=== PATIENT | male | born 1955 | race Caucasian/White ===

== ENCOUNTER 2017-05-06 05:13 | Observation (INO) | payer BC ==
[~2017-05-06] VITALS: Ht 170.2 cm; Wt 85.3 kg
--- NOTE | ~2017-05-06 | TEE ---
Transesophageal Echocardiogram [id number] [place]. [address] NAME: CHITO OLIVAREZ : 51 STATUS : REG REF PAT#: [id number] AGE: 61 ADM/REG DATE : 05/06/17 MR#: [id number] REPORT SERV DATE: 05/06/17 DICTATED BY: DATE: REPORT STATUS : Draft TRANSCRIBED BY: MODL DATE: 05/06/17 DESCRIPTION OF PROCEDURE: After informed consent and all questions were answered, the patient was sedated by our Anesthesia colleagues. The probe was inserted and the exam was performed without any complications. The probe was withdrawn without any difficulty whatsoever and there was no blood on the probe. The patient tolerated the procedure with only a mild amount of coughing, which was managed by our Anesthesia colleagues. FINDINGS: 1. Left ventricle. The left ventricle is of normal size and grossly normal LV function in the setting of atrial flutter with rapid ventricular response. 2. Left atrium. The left atrium is normal without evidence of thrombus. 3. Left atrial appendage. The left atrial appendage was meticulously inspected. It had a windsock appearance and did not contain any evidence of thrombus when inspected in multiple planes. 4. Right ventricle. The right ventricle was grossly normal. 5. Right atrium. Right atrium was grossly normal. 6. Interatrial septum. The interatrial septum was inspected. A tiny PFO was appreciated inferiorly. 7. Aortic valve. There was trivial aortic regurgitation. 8. Mitral valve. There was mild mitral valve regurgitation. 9. Pulmonic valve. There was mild pulmonic regurgitation. 10.Tricuspid valve. There was mild tricuspid regurgitation as well. 11.Doppler. Doppler flow velocities in the left atrial appendage were approximately 15-20 m/sec. CONCLUSION: 1. NO EVIDENCE OF LA, ELYSE, OR RA APPENDAGE THROMBUS. 2. GROSSLY NORMAL LEFT VENTRICULAR AND RIGHT VENTRICULAR FUNCTION. 3. TINY PFO APPRECIATED. 4. MILD IN, TR, AND MR. COMPLICATIONS: None. EPL/MODL Dorian Fry IV, MD / [id number] CC: Mali Hurst M.D.
[~2017-05-06 05:13] MED LIST: ASA5GR PO; BENICAR40 PO; BETAPACE80 PO; BYSTOLIC5 MG PO; CALCIUM 600 WI1 EAC2 PO; CIALIS2.5 MG PO; COCONUT OIL; COCONUT OIL XX; CRESTOR5 MG PO; CVS DAILY GUM200 MCG PO; CYANO1000T PO; FISH-EPA1000 MG PO; LIPITOR20 PO; LIPITOR40 PO; LOP25 PO; MAXIMUM D3 PO; MULTIVITAMI1 PO; NORCO1 TA1 PO; PLAVIX PO; PRADAXA150 MG PO; PRILO PO; PROTONIX PO; VIACTIV PO; VITAMIN D1000 UNI1 PO; VITAMIN D31000 UNIT PO; X5 PO
[2017-05-06 06:09] LABS: BASOPHILS 0.2 %; BASOPHILS ABSOLUTE 0.01 10/3/uL (0.0-0.16); EOSINOPHILS 1.7 %; HEMATOCRIT 43.8 % (40.0-51.0); HEMOGLOBIN 14.9 g/dL (13.6-17.8); LYMPHOCYTES 28.6 %; LYMPHOCYTES ABSOLUTE 1.67 10/3/uL (0.67-4.30); MANUAL DIFF NO %; MEAN CORPUSCULAR VOLUME 88.1 fL (80-100); MEAN PLATELET VOLUME 9.3 fL (9.2-13.0); MONOCYTES 8.2 %; MONOCYTES ABSOLUTE 0.48 10/3/uL (0.21-1.20); NEUTROPHILS 61.3 %; NEUTROPHILS ABSOLUTE 3.58 10/3/uL (2.02-8.40); PLATELET COUNT 163 10/3/uL (150-400); RBC DISTRIBUTION WIDTH 13.3 % (12.0-16.0); RED CELL COUNT 4.97 10/6/uL (4.7-6.1); WHITE BLOOD CELLS 5.8 10/3/uL (4.5-10.5)
[2017-05-06 06:22] LABS: CALCIUM, SERUM 8.5 MG/DL (8.5-10.4); CHLORIDE, SERUM 104 MMOL/L (96-112); CO2 (CARBON DIOXIDE) 28 MMOL/L (24-34); CREATININE 0.98 MG/DL (0.70-1.30); GFR AFRICAN AMERICAN 95 ML/MIN (>=60); GFR NON AFRICAN AMERICAN 82 ML/MIN (>=60); GLUCOSE, SERUM 98 MG/DL (60-99); POTASSIUM, SERUM 3.8 MMOL/L (3.5-5.3); SODIUM, SERUM 139 MMOL/L (135-148)
[2017-05-06 06:23] LABS: BUN (BLOOD UREA NITROGEN) 27 MG/DL (6-23)
== END 2017-05-07 10:03 | disposition home or self-care (01) ==
LOC: CORLMH 05:13 → SSU1 05:22 → CORLMH 05:23 → SSU1 05-07 10:03
PROVIDERS: Internal Medicine Cardiovascular Disease
DX: I48.1 Persistent atrial fibrillation (principal); I48.92 Unspecified atrial flutter; I10 Essential (primary) hypertension; I25.10 Atherosclerotic heart disease of native coronary artery without angina pectoris; E78.5 Hyperlipidemia, unspecified; I34.0 Nonrheumatic mitral (valve) insufficiency; Z98.84 Bariatric surgery status; Z95.5 Presence of coronary angioplasty implant and graft; Z87.891 Personal history of nicotine dependence; Z82.49 Family history of ischemic heart disease and other diseases of the circulatory system; Z79.01 Long term (current) use of anticoagulants; Z87.442 Personal history of urinary calculi; Z79.899 Other long term (current) drug therapy
CPT/HCPCS: 80048; 82962; 85025; 85347; 93005; 93312; 93320; 93325; 93613; 93655; 93656; 93662; 96374; A9270-GY; C1732; C1759; C1769; C1781; C1894; G0378; J1940; J2250; J2370; J2405; J2710; J3010; Q9967